=== PATIENT | male | born 1990 | race African-American/Black ===

== ENCOUNTER 2018-02-17 23:26 | Emergency (ER) | END 2018-02-18 02:21 | disposition home or self-care (01) ==

== ENCOUNTER 2019-01-11 09:34 | Emergency (ER) | payer OTHER ==
[~2019-01-11] VITALS: Ht 185.4 cm; Wt 87.0 kg
[~2019-01-11 09:34] MED LIST: AMOX1TAB10 PO; AUG875 PO; CARB-160 PO; CLIN300C10 PO; HYDR-3498 PO; LEVE500T8 PO; NAPR-985 PO; PRED20TA PO; [UNRECOGNIZED DRUG - CODE] PO
[2019-01-11] MEDS ORDERED: LORAZEPAM 2 MG INJ IV STA (09:45)
[2019-01-11 09:48] VITALS: Ht 185.4 cm; Wt 87.0 kg
[2019-01-11] MEDS ORDERED: LORAZEPAM 2 MG INJ IV ONE (11:30)
[2019-01-11] MEDS ORDERED: FOSPHENYTOIN (PE) 1,000 MG in SOD CHLORIDE 0.9% 80 ML IVPB ONE (11:30)
[2019-01-11] MEDS ORDERED: SOD CHLORIDE 0.9% 1,000 ML IV SCH (12:17)
[2019-01-11] MEDS ORDERED: ONDANSETRON 4 MG INJ IV PRN ×2 (12:30)
[2019-01-11] MEDS ORDERED: ACETAMINOPHEN 325 MG TAB PO PRN ×2 (12:30)
[2019-01-11] MEDS ORDERED: morphine 2 MG INJ IV PRN (12:30)
[2019-01-11] MEDS ORDERED: LORAZEPAM 2 MG INJ IV PRN (12:30)
[2019-01-11] MEDS ORDERED: HYDROCODONE/APAP (5/325) TAB PO PRN (12:30)
[2019-01-11] MEDS ORDERED: NACL 0.9% 3 ML SYG IV SCH (12:30)
[2019-01-11] MEDS ORDERED: LEVETIRACETAM 1000 MG (PMX) 100 ML IVPB SCH (13:00)
[2019-01-11 17:05] VITALS: BP 103/58; PULSE 91; RESP 14
[2019-01-11] MEDS ORDERED: CARBAMAZEPINE 200 MG TAB PO SCH (18:00)
[2019-01-12] MEDS ORDERED: PANTOPRAZOLE 40 MG INJ IV SCH (06:00)
== END 2019-01-11 18:58 | disposition left against medical advice (07) ==
LOC: E/R 09:34 → CANRESERV 16:50 → E/R 18:58 → CANBEDREQ 01-12 11:14
DX: G40.901 Epilepsy, unspecified, not intractable, with status epilepticus (principal); J45.909 Unspecified asthma, uncomplicated; R40.2132 Coma scale, eyes open, to sound, at arrival to emergency department; R40.2212 Coma scale, best verbal response, none, at arrival to emergency department; R40.2352 Coma scale, best motor response, localizes pain, at arrival to emergency department; Z87.891 Personal history of nicotine dependence
CPT/HCPCS: 36415; 70450; 80048; 80156; 80185; 85025; 87040; 96374; 96375; 96376; J1953; J2060; J7030; Q2009; Z7502; Z7610